=== PATIENT | female | born 2000 | race African-American/Black ===

== ENCOUNTER 2019-07-05 11:50 | Emergency (ER) | payer MEDICAID ==
[~2019-07-05] VITALS: Ht 175.3 cm; Wt 80.0 kg
[2019-07-05 12:45] LABS: BASOPHILS % 0.4 % (0.0-2.0); EOSINOPHILS % 0.7 % (0.0-5.0); HEMATOCRIT. 36.3 % (36.0-48.0); HEMOGLOBIN. 11.9 g/dL (12.0-16.0); LYMPHOCYTES % 33.2 % (20.0-50.0); MEAN CORPUSCULAR VOLUME 91.5 fL (81.0-99.0); MEAN PLATELET VOLUME 9.9 fl (7.4-10.4); MONOCYTES % 9.3 % (2.0-8.0); NEUTROPHILS % 56.4 % (40.0-76.0); PLATELET 217 x1000/uL (130-400); RED BLOOD CELL COUNT 3.96 mill/uL (4.2-5.4); RED CELL DISTRIBUTION WIDTH 15.5 % (11.6-14.6)
[2019-07-05 12:51] LABS: CHLORIDE 109 mEq/L (98-107)
[2019-07-05 13:40] LABS: HCG SCREEN NEGATIVE
[2019-07-05] MEDS ORDERED: POTASSIUM CHLORIDE 20MEQ TABLET SR PO ONE (14:45)
[2019-07-05] MEDS ORDERED: PHENYTOIN SODIUM 1,000 MG in SODIUM CHLORIDE 0.9% 100 ML IV ONE (14:45)
[2019-07-05 16:30] VITALS: BP 118/64
[2019-07-08] MEDS ORDERED: PHEN100C4 MT (11:14)
[2019-07-08] MEDS ORDERED: LEVE750T4 MT (11:14)
== END 2019-07-05 17:08 | disposition home or self-care (01) ==
LOC: ER 11:50
DX: R56.9 Unspecified convulsions (principal); M54.5 Low back pain
CPT/HCPCS: 36415; 70450; 80053; 80185; 84703; 85025; 99284; J1165; J7050

== ENCOUNTER 2019-07-08 17:33 | Emergency (ER) | payer MEDICAID ==
[~2019-07-08] VITALS: Ht 172.7 cm; Wt 86.0 kg
[~2019-07-08 17:33] MED LIST: LEVE750T4 MT; PHEN100C4 MT
[2019-07-08] MEDS ORDERED: LORAZEPAM 2MG/ML CPJ ONE (18:34)
[2019-07-08] MEDS ORDERED: SODIUM CHLORIDE 0.9% 1,000 ML IV ONE (18:34)
[2019-07-08] MEDS ORDERED: LORAZEPAM 2MG/ML CPJ IV ONE (18:45)
[2019-07-08] MEDS ORDERED: LEVETIRACETAM 500MG PREMIX 100 ML IV ONE (18:45)
[2019-07-08 18:51] LABS: BASOPHILS % 0.5 % (0.0-2.0); EOSINOPHILS % 1.1 % (0.0-5.0); HEMATOCRIT. 39.4 % (36.0-48.0); LYMPHOCYTES % 28.9 % (20.0-50.0); MEAN CORPUSCULAR HEMOGLOBIN 30.4 pg (28.0-32.0); MEAN CORPUSCULAR VOLUME 91.6 fL (81.0-99.0); MEAN PLATELET VOLUME 10.6 fl (7.4-10.4); NEUTROPHILS % 60.5 % (40.0-76.0); PLATELET 226 x1000/uL (130-400)
[2019-07-08 18:57] LABS: CHLORIDE 109 mEq/L (98-107)
[2019-07-08 18:59] LABS: HCG SCREEN NEGATIVE
[2019-07-08 21:38] LABS: *AMPHETAMINES SCREEN URINE NEGATIVE (NEGATIVE); *BARBITURATES SCREEN URINE NEGATIVE (NEGATIVE); *COCAINE SCREEN URINE NEGATIVE (NEGATIVE)
[2019-07-08 21:39] LABS: METHADONE URINE SCREEN NEGATIVE (NEGATIVE); PHENCYCLIDINE URINE SCREEN NEGATIVE (NEGATIVE)
[2019-07-08 21:43] LABS: *BENZODIAZEPINES SCREEN URINE PRESUMTIVE POSITIVE (NEGATIVE); CANNABINOID URINE SCREEN PRESUMTIVE POSITIVE (NEGATIVE); OPIATES URINE SCREEN PRESUMTIVE POSITIVE (NEGATIVE)
[2019-07-08 21:53] VITALS: BP 145/83
== END 2019-07-08 22:15 | disposition left against medical advice (07) ==
LOC: ER 17:33
DX: R56.9 Unspecified convulsions (principal); F10.129 Alcohol abuse with intoxication, unspecified; Y90.4 Blood alcohol level of 80-99 mg/100 ml; Z79.899 Other long term (current) drug therapy
CPT/HCPCS: 36415; 80053; 80185; 80305; 80320; 84703; 85025; 93005; 96374; 96375; 99284; J1953; J2060; J7030; G0480